=== PATIENT | male | born 1955 | race Two or more races ===

== ENCOUNTER 2023-12-25 17:34 | Emergency (ER) | payer OTHER ==
[~2023-12-25] VITALS: Ht 170.2 cm; Wt 108.9 kg
[2023-12-25] MEDS ORDERED: AZOR 10-20 MG1 EACH (18:11)
[2023-12-25] MEDS ORDERED: ROSUVASTATIN CA10 MG PO (18:11)
[2023-12-25] MEDS ORDERED: ECOTRIN81 MG (18:12)
== END 2023-12-25 21:30 | disposition left against medical advice (07) ==
LOC: ER 17:35
DX: M25.521 Pain in right elbow (principal)